=== PATIENT | female | born 1955 | race Caucasian/White ===

== ENCOUNTER 2017-03-26 20:18 | Emergency (ER) | payer OTHER ==
[2017-03-26] MEDS ORDERED: Nitroglycerin TAB 0.4 MG* 0.4 MG TAB ONE (20:54)
[2017-03-26] MEDS: Aspirin Low Dose CHEW TAB* 81 MG PO ONE ×2 (20:55→20:58)
[2017-03-26] MEDS: Ondansetron INJ* 2 MG/ML VIAL IV ONE ×2 (20:55→20:58)
[2017-03-26] MEDS: Nitroglycerin TAB 0.4 MG* 0.4 MG TAB SL ONE ×2 (20:56→20:58)
[2017-03-26 21:06] LABS: Hematocrit 38 % (35-47); Mean Corpuscular HGB Conc 34 g/dl (31-36); Mean Corpuscular Hemoglobin 33 pg (27-31); Mean Corpuscular Volume 96 fL (80-97); Mean Platelet Volume 8 um3 (7.4-10.4); Red Blood Count 3.96 10^6/ul (4.0-5.4); Red Cell Distribution Width 13 % (10.5-15); White Blood Count 10.2 10^3/ul (3.5-10.8)
--- NOTE | 2017-03-26 21:11 | RAD ---
HISTORY: Chest pain COMPARISONS: None VIEWS:1: Single frontal portable view of the chest at 8:59 PM FINDINGS: LINES AND TUBES: None. CARDIOMEDIASTINAL SILHOUETTE: The cardiomediastinal silhouette is normal for portable technique. PLEURA: The costophrenic angles are sharp. No pleural abnormalities are noted. LUNG PARENCHYMA: The lungs are clear. ABDOMEN: The upper abdomen is clear. There is no subphrenic gas. BONES AND SOFT TISSUES: No bone or soft tissue abnormalities are noted. IMPRESSION: NO ACTIVE CARDIOPULMONARY DISEASE.
[2017-03-26 21:21] LABS: Albumin 4.3 g/dL (3.2-5.2); BUN/Creatinine Ratio 19.8 (8-20); Calcium 9.7 mg/dL (8.6-10.3); EGFR African American 86.6 (>60); EGFR Non-African American 67.3 (>60); Globulin 2.6 g/dL (2-4); Potassium 4.1 mmol/L (3.5-5.0); Total Bilirubin 0.5 mg/dL (0.2-1.0); Total Protein 6.9 g/dL (6.4-8.9)
[2017-03-26] MEDS ORDERED: Ketorolac INJ* 30 MG/ML 1 ML VIAL IV PUSH ONE (22:14)
--- NOTE | 2017-03-26 22:36 | ED ---
Kaitlyn Pierson Rebecca, scribed for John Vincent MD on 03/26/17 at 2050 . Abdominal Pain/Female - HPI Summary HPI Summary: Pt is a 61 y/o F BIBA who presents to ED c/o epigastric abd pain. Sx began suddenly at 1900 and have been waxing and waning in intensity, currently improved. Sx aggravated and alleviated by nothing. Additionally c/o pallor, nausea and diaphoresis at onset of pain, which have resolved. Denies vomiting, throat pain. No prior similar episodes. Pt is visiting the area from [place] and reports that she typically stays very active. notes recent increase in stress. PMhx tachycardia. Pt is not on blood thinners. Allergy to Sulfa drugs. Reports an episode of severe constipation a few weeks ago while on a trip in [place]. - History of Current Complaint Chief Complaint: EDAbdPain Stated Complaint: UPPER ABD PAIN Time Seen by Provider: 03/26/17 20:38 Hx Obtained From: Patient Onset/Duration: Sudden Onset, Still Present Timing: Constant Location: Epigastric Aggravating Factor(s): Nothing Alleviating Factor(s): Nothing Associated Signs and Symptoms: Positive: Diaphoresis, Nausea. 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 Negative: Vomiting All Other Systems Reviewed And Are Negative: Yes Physical Exam Triage Information Reviewed: Yes Vital Signs On Initial Exam: Initial Vitals Temp Pulse Resp BP Pulse Ox 97.4 F 56 22 143/115 100 03/26/17 20:20 03/26/17 20:20 03/26/17 20:20 03/26/17 20:20 03/26/17 20:20 Vital Signs Reviewed: Yes Appearance: Positive: Well-Appearing, No Pain Distress Skin: Positive: Warm Head/Face: Positive: Normal Head/Face Inspection Eyes: Positive: SNOW ENT: Positive: Hearing grossly normal Neck: Positive: Supple Respiratory/Lung Sounds: Positive: Clear to Auscultation, Breath Sounds Present Cardiovascular: Positive: RRR Abdomen Description: Positive: Nontender, Soft Bowel Sounds: Positive: Present Musculoskeletal: Positive: Strength/ROM Intact Neurological: Positive: Sensory/Motor Intact, Alert, Oriented to Person Place, Time, Normal Gait Psychiatric: Positive: Anxious Diagnostics - Vital Signs Vital Signs Temp Pulse Resp BP Pulse Ox 03/26/17 20:20 97.4 F 56 22 143/115 100 - Laboratory Lab Results: Lab Results 03/26/17 03/26/17 03/26/17 Range/Units 20:58 20:58 20:58 WBC 10.2 (3.5-10.8) 10^3/ul RBC 3.96 L (4.0-5.4) 10^6/ul Hgb 13.0 (12.0-16.0) g/dl Hct 38 (35-47) % MCV 96 (80-97) fL MCH 33 H (27-31) pg MCHC 34 (31-36) g/dl RDW 13 (10.5-15) % Plt Count 282 (150-450) 10^3/ul MPV 8 (7.4-10.4) um3 Neut % (Auto) 77.7 (38-83) % Lymph % (Auto) 15.4 L (25-47) % [place] % (Auto) 4.9 (1-9) % Eos % (Auto) 1.4 (0-6) % Baso % (Auto) 0.6 (0-2) % Absolute Neuts (auto) 7.9 H (1.5-7.7) 10^3/ul Absolute Lymphs (auto) 1.6 (1.0-4.8) 10^3/ul Absolute Monos (auto) 0.5 (0-0.8) 10^3/ul Absolute Eos (auto) 0.1 (0-0.6) 10^3/ul Absolute Basos (auto) 0.1 (0-0.2) 10^3/ul Absolute Nucleated RBC 0 10^3/ul Nucleated RBC % 0 D-Dimer, Quantitative < 200 (Less Than 230) ng/mL Sodium 138 (133-145) mmol/L Potassium 4.1 (3.5-5.0) mmol/L Chloride 103 (101-111) mmol/L Carbon Dioxide 30 (22-32) mmol/L Anion Gap 5 (2-11) mmol/L BUN 17 (6-24) mg/dL Creatinine 0.86 (0.51-0.95) mg/dL Est GFR ( Amer) 86.6 (>60) Est GFR (Non-Af Amer) 67.3 (>60) BUN/Creatinine Ratio 19.8 (8-20) Glucose 127 H (70-100) mg/dL Lactic Acid (0.5-2.0) mmol/L Calcium 9.7 (8.6-10.3) mg/dL Total Bilirubin 0.50 (0.2-1.0) mg/dL AST 128 H (13-39) U/L ALT 61 H (7-52) U/L Alkaline Phosphatase 62 (34-104) U/L Troponin I 0.00 (<0.04) ng/mL Total Protein 6.9 (6.4-8.9) g/dL Albumin 4.3 (3.2-5.2) g/dL Globulin 2.6 (2-4) g/dL Albumin/Globulin Ratio 1.7 (1-3) 03/26/ Range/Units 20:58 WBC (3.5-10.8) 10^3/ul RBC (4.0-5.4) 10^6/ul Hgb (12.0-16.0) g/dl Hct (35-47) % MCV (80-97) fL MCH (27-31) pg MCHC (31-36) g/dl RDW (10.5-15) % Plt Count (150-450) 10^3/ul MPV (7.4-10.4) um3 Neut % (Auto) (38-83) % Lymph % (Auto) (25-47) % [place] % (Auto) (1-9) % Eos % (Auto) (0-6) % Baso % (Auto) (0-2) % Absolute Neuts (auto) (1.5-7.7) 10^3/ul Absolute Lymphs (auto) (1.0-4.8) 10^3/ul Absolute Monos (auto) (0-0.8) 10^3/ul Absolute Eos (auto) (0-0.6) 10^3/ul Absolute Basos (auto) (0-0.2) 10^3/ul Absolute Nucleated RBC 10^3/ul Nucleated RBC % D-Dimer, Quantitative (Less Than 230) ng/mL Sodium (133-145) mmol/L Potassium (3.5-5.0) mmol/L Chloride (101-111) mmol/L Carbon Dioxide (22-32) mmol/L Anion Gap (2-11) mmol/L BUN (6-24) mg/dL Creatinine (0.51-0.95) mg/dL Est GFR ( Amer) (>60) Est GFR (Non-Af Amer) (>60) BUN/Creatinine Ratio (8-20) Glucose (70-100) mg/dL Lactic Acid 1.1 (0.5-2.0) mmol/L Calcium (8.6-10.3) mg/dL Total Bilirubin (0.2-1.0) mg/dL AST (13-39) U/L ALT (7-52) U/L Alkaline Phosphatase (34-104) U/L Troponin I (<0.04) ng/mL Total Protein (6.4-8.9) g/dL Albumin (3.2-5.2) g/dL Globulin (2-4) g/dL Albumin/Globulin Ratio (1-3) Result Diagrams: 03/26/17 20:58 03/26/17 20:58 Lab Statement: Any lab studies that have been ordered have been reviewed, and results considered in the medical decision making process. - Radiology CXR Xray Interpretation: No Acute Changes - NO ACTIVE CARDIOPULMONARY DISEASE. ED physician reviewed this radiology report and agrees. Radiology Interpretation Completed By: Radiologist - EKG 2038 Cardiac Rate: NL - 60 BPM EKG Rhythm: Sinus Rhythm EKG Interpretation: Normal Re-Evaluation - Re-Evaluation First Eval Re-Evaluation Time: 01:26 Change: Improved Comment: Discussed results and D/C plan. Abdominal Pain Fem Course/Dx - Course Course Of Treatment: Pt is a 61 y/o F BIBA who presents to ED c/o epigastric abd pain. Sx began suddenly at 1900 and have been waxing and waning in intensity. Additionally c/o pallor, nausea and diaphoresis at onset of pain, which have resolved. Denies vomiting, throat pain. No prior similar episodes. Pt is visiting the area from [place] and reports that she typically stays very active. notes recent increase in stress. PMhx tachycardia. Pt is not on blood thinners. Allergy to Sulfa drugs. Reports an episode of severe constipation a few weeks ago while on a trip in [place]. CXR and EKG reveal no acute findings. D-Dimer < 200 and both troponins are 0.00. In the ED course, pt was administered ASA, Toradol, NTG and zofran. She will be D/C to home with Dx of abdominal pain and a follow up with her PCP. She understands and agrees. Elevated BP noted and advised to f/u with PCP. - Diagnoses Provider Diagnoses: Abdominal pain Discharge - Discharge Plan Condition: Stable Disposition: HOME Patient Education Materials: Acute Abdominal Pain (ED) Referrals: Non Staff,Doctor [Primary Care Provider] - 3 Days (Follow up with your primary care physician in the next 3 days. ) Additional Instructions: Return to the ED for any returning or worsening symptoms. The documentation as recorded by the Kaitlyn duffy Rebecca accurately reflects the service I personally performed and the decisions made by me, John Vincent MD.
[2017-03-27 01:37] VITALS: BP 137/66
== END 2017-03-27 01:41 | disposition home or self-care (01) ==
LOC: ED 20:18
DX: R10.13 Epigastric pain (principal); R61 Generalized hyperhidrosis; R11.0 Nausea
CPT/HCPCS: 36415; 71010; 80053; 83605; 84484; 85025; 85379; 93005; 99283; A9270-GY; J1885; J2405